=== PATIENT | female | born 1965 | race Caucasian/White ===

== ENCOUNTER 2017-02-03 19:03 | Emergency (ER) | payer SELFPAY ==
[2017-02-03] MEDS ORDERED: Naproxen 500 MG TAB ONE (20:09)
[2017-02-03] MEDS ORDERED: Sulfameth/Trimethoprim DS 800-160mg TAB ONE (20:09)
[2017-02-03] MEDS ORDERED: Cephalexin 500 MG CAP ONE (20:09)
[2017-02-03] MEDS ORDERED: HYDROcodone/Acetaminophen 10/325 mg Tablet ONE (20:09)
== END 2017-02-03 20:09 | disposition home or self-care (01) ==
LOC: MADERS 19:03
DX: T63.301A Toxic effect of unspecified spider venom, accidental (unintentional), initial encounter (principal); L08.9 Local infection of the skin and subcutaneous tissue, unspecified; I10 Essential (primary) hypertension; Z87.891 Personal history of nicotine dependence
CPT/HCPCS: 99282

== ENCOUNTER 2018-12-01 12:15 | Emergency (ER) | payer SELFPAY ==
[2018-12-01] MEDS ORDERED: Iopamidol 370 76% 100 ML VIAL ONE (12:26)
[2018-12-01] MEDS ORDERED: Sodium Chloride 0.9% 1,000 ML ONE (14:07)
[2018-12-01] MEDS ORDERED: Loperamide HCl 2 MG CAP ONE (14:07)
[2018-12-01 14:15] LABS: #Basophils 0.1 thou/uL (0.0-0.2); #Eosinphils 0.2 thou/uL (0.0-0.7); #Lymphocytes 3.1 thou/uL (1.20-3.40); #Monocytes 0.6 thou/uL (0.11-0.59); %Basophils 0.7 % (0.0-1.0); %Eosinophils 2.1 % (0.0-10.0); %Lymphocytes 35.1 % (21.0-51.0); %Monocytes 6.5 % (0.0-10.0); %Neutrophils 55.6 % (42.0-75.0); Hemoglobin 13.6 g/dL (12.0-16.0); Mean Corpuscular HGB CONC 32.5 g/dL (32.0-36.0); Mean Corpuscular Hemoglobin 30.3 pg (27.0-31.0); Mean Corpuscular Volume 93.5 fL (78.0-98.0); Mean Platelet Volume 7.1 fL (7.4-10.4); Platelet Count 288 thou/uL (130-400); RBC Distribution Width 11.8 % (11.5-14.5); Red Blood Cell (RBC) Count 4.49 mill/uL (4.20-5.40); White Blood Cell (WBC) Count 8.9 thou/uL (4.8-10.8)
[2018-12-01 14:35] LABS: ALT (SGPT) 13 U/L (8-55); AST (SGOT) 19 U/L (5-34); Albumin 4.2 g/dL (3.5-5.0); Alkaline Phosphatase 66 U/L (40-150); Anion Gap 11 mmol/L (10-20); BUN (Urea Nitrogen) 10 mg/dL (9.8-20.1); Bilirubin, Total 0.3 mg/dL (0.2-1.2); Calc. Creatinine Clearance 0 mL/min (70-130); Calcium 9.8 mg/dL (7.8-10.44); Carbon Dioxide 26 mmol/L (22-29); Chloride 106 mmol/L (98-107); Estimated GFR-MDRD 78; Glucose 94 mg/dL (70-105); Lipase 109 U/L (8-78); Potassium 3.5 mmol/L (3.5-5.1); Protein, Total 7.2 g/dL (6.0-8.3); Sodium 139 mmol/L (136-145)
--- NOTE | 2018-12-01 15:03 | CT ---
CT ABDOMEN AND PELVIS WITH IV CONTRAST: HISTORY: Diarrhea, weight loss. FINDINGS: The lung bases are clear. The patient is post cholecystectomy. The liver, spleen, pancreas, adrenal glands, and kidneys are normal. A gastric diverticulum is seen posteriorly. The small bowel loops are not abnormally dilated. A nor mal-appearing appendix is present. There are vascular calcifications without evidence of aneurysmal dilatation of the abdominal aorta. There are degenerative changes in the spine. Uterus and ovaries are present. Prominent vascularity is seen in the left adnexa. A prominent left ovarian vein is present. IMPRESSION: 1. No evidence of acute process. 2. Gastric diverticulum. 3. Probable pelvic congestion. POS: OFF
[2018-12-09 14:09] LABS: Routine O & P Final report (.)
== END 2018-12-01 15:58 | disposition short-term general hospital (02) ==
LOC: MADERS 12:15
DX: E86.0 Dehydration (principal); R19.7 Diarrhea, unspecified; I10 Essential (primary) hypertension; Z87.891 Personal history of nicotine dependence; Z79.82 Long term (current) use of aspirin; Z79.899 Other long term (current) drug therapy
CPT/HCPCS: 36415; 74177; 80053; 82274; 83630; 83690; 85025; 87045; 87046; 87177; 87324; 87427; 87449; 96360; J7050; Q9967

== ENCOUNTER 2020-04-28 10:30 | Outpatient (CLI) | payer BC ==
--- NOTE | 2020-04-28 10:55 | RAD ---
3 views of the lumbar spine: 04/28/2020 COMPARISON: None HISTORY: Acute back pain, no history of trauma FINDINGS: Cholecystectomy clips are noted in the right upper quadrant. Lumbar pedicles appear intact on frontal imaging. There is atherosclerotic calcification of the abdominal aorta. There is anterolisthesis measuring 4-5 mm at the L3-4 level. There is facet hypertrophy at L3-4 as well. There is mild disc space narrowing at L3-4 and L4-5. No acute osseous abnormality. IMPRESSION: Lumbar spine degenerative changes as above. No acute osseous abnormality. If there are ra dicular symptoms, lumbar spine MRI suggested.
[2020-04-28 11:04] LABS: #Basophils 0.1 thou/uL (0.0-0.2); #Eosinphils 0.4 thou/uL (0.0-0.7); #Lymphocytes 2.9 thou/uL (1.20-3.40); #Monocytes 0.5 thou/uL (0.11-0.59); #Neutrophils 4.6 thou/uL (1.40-6.50); %Basophils 1.5 % (0.0-1.0); %Eosinophils 4.2 % (0.0-10.0); %Lymphocytes 34.5 % (21.0-51.0); %Monocytes 6.1 % (0.0-10.0); %Neutrophils 53.8 % (42.0-75.0); Hemoglobin 13.9 g/dL (12.0-16.0); Mean Corpuscular HGB CONC 32.9 g/dL (32.0-36.0); Mean Corpuscular Hemoglobin 30.4 pg (27.0-31.0); Mean Corpuscular Volume 92.4 fL (78.0-98.0); Mean Platelet Volume 8.1 fL (7.4-10.4); Platelet Count 233 thou/uL (130-400); RBC Distribution Width 10.5 % (11.5-14.5); Red Blood Cell (RBC) Count 4.57 mill/uL (4.20-5.40); White Blood Cell (WBC) Count 8.5 thou/uL (4.8-10.8)
[2020-04-28 11:21] LABS: ALT (SGPT) 17 U/L (8-55); AST (SGOT) 22 U/L (5-34); Albumin 4.4 g/dL (3.5-5.0); Alkaline Phosphatase 87 U/L (40-110); Anion Gap 15 mmol/L (10-20); BUN (Urea Nitrogen) 11 mg/dL (9.8-20.1); Bilirubin, Total 0.3 mg/dL (0.2-1.2); Calc. Creatinine Clearance 0 mL/min (70-130); Calcium 10.3 mg/dL (7.8-10.44); Carbon Dioxide 24 mmol/L (22-29); Cardiac Risk 5.3 (Less than 4.5); Chloride 103 mmol/L (98-107); Cholesterol 336 mg/dl (< 200 Desired); Globulin 3.1 g/dL (2.4-3.5); Glucose 95 mg/dL (70-105); HDL Cholesterol 63 mg/dL (>60 Neg Risk); LDL Cholesterol, Calculated 243 mg/dL; Potassium 4.3 mmol/L (3.5-5.1); Protein, Total 7.5 g/dL (6.0-8.3); Sodium 138 mmol/L (136-145); Triglycerides 151 mg/dL (Less than 150)
== END 2020-04-28 10:31 | disposition home or self-care (01) ==
LOC: MADLAB 10:30
PROVIDERS: ATTEND Family Medicine
DX: M54.5 Low back pain (principal); R53.83 Other fatigue; R00.2 Palpitations; R07.89 Other chest pain; M47.816 Spondylosis without myelopathy or radiculopathy, lumbar region
CPT/HCPCS: 36415; 72100; 80053; 80061; 84443; 85025

== ENCOUNTER 2021-06-05 21:01 | Emergency (ER) | payer BC ==
[2021-06-05] MEDS ORDERED: Orphenadrine Citrate 60 MG/2 ML VIAL ONE (21:42)
== END 2021-06-05 21:50 | disposition home or self-care (01) ==
LOC: MADERS 21:01
DX: M54.42 Lumbago with sciatica, left side (principal); I10 Essential (primary) hypertension; K21.9 Gastro-esophageal reflux disease without esophagitis; Z87.891 Personal history of nicotine dependence
CPT/HCPCS: 96372; 99283; J2360